=== PATIENT | female | born 2000 | race Caucasian/White ===

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

== ENCOUNTER 2019-02-10 17:35 | Emergency (ER) | payer OTHER ==
[2019-02-10 17:59] VITALS: BP 118/68
--- NOTE | 2019-02-10 18:36 | UC ---
Skin Complaint HPI - HPI Summary HPI Summary: Per product developer: "Last night face started itchy. This morning face is still itchy and red. Pt did use a new cleanser yesterday morning and Friday ana. " -denies swelling in lips, tongue, throat SOB or wheezing. -swelling and itching is only in areas that she applied cleanser -she took benadryl at ~ 3 PM last with relief. -denies any other allergies or ever need to have use of epi pen -denies palpiattions/heart racing. not lightheaded or dizzy. no n/v/abd pain - History of Current Complaint Chief Complaint: UCSkin Time Seen by Provider: 02/10/19 18:14 Stated Complaint: SKIN COMPLAINT Hx Last Menstrual Period: 06/25/18 Pain Intensity: 0 - Allergy/Home Medications Allergies/Adverse Reactions: Allergies Allergy/AdvReac Type Severity Reaction Status Date / Time sulfamethoxazole Allergy Rash Verified 02/10/19 17:59 [From Bactrim] trimethoprim [From Bactrim] Allergy Rash Verified 02/10/19 17:59 walnuts Allergy See Comment Uncoded 02/10/19 17:59 PMH/Surg Hx/FS Hx/Imm Hx Previously Healthy: Yes Other History Of: Negative For: HIV, Hepatitis B, Hepatitis C - Surgical History Surgical History: None - Family History Known Family History: Positive: None - No asthma., Hypertension, Diabetes, Other - Patient denies relevant FHx Family History: Noncontributory - Social History Alcohol Use: Daily Substance Use Type: Marijuana Substance Use Comment - Amount & Last Used: daily use Smoking Status (MU): Current Some Day Smoker Type: Cigarettes - Immunization History Vaccination Up to Date: Yes Review of Systems All Other Systems Reviewed And Are Negative: Yes Constitutional: Positive: Negative. Negative: Fever, Chills Skin: Positive: Other - see above Eyes: Positive: Negative ENT: Positive: Negative. Negative: Dental Pain, Sore Throat, Ear Ache, Sinus Congestion Respiratory: Positive: Negative. Negative: Shortness Of Breath, Cough Cardiovascular: Positive: Negative Gastrointestinal: Positive: Negative Motor: Positive: Negative Neurovascular: Positive: Negative Musculoskeletal: Positive: Negative Neurological: Positive: Negative Psychological: Positive: Negative Is Patient Immunocompromised?: No Physical Exam Triage Information Reviewed: Yes Appearance: Well-Appearing, No Pain Distress, Well-Nourished Vital Signs: Initial Vital Signs Temp 98.2 F 02/10/19 17:54 Pulse 77 02/10/19 17:54 Resp 18 02/10/19 17:54 BP 118/68 02/10/19 17:54 Pulse Ox 100 02/10/19 17:54 Vital Signs Reviewed: Yes Eye Exam: Normal Eyes: Positive: Conjunctiva Clear ENT: Positive: Pharynx normal, TMs normal, Uvula midline, Other - no swelling of lips, tongue, uvula or throat. skin generalized slight areas or uritcaria w/ mild erythema. no disruption to skin. cool to touch. + itching. sharp demarkation at jaw/face line where she used the cleanser. Negative: Pharyngeal erythema Dental Exam: Normal Neck exam: Normal Neck: Positive: Supple, Nontender, No Lymphadenopathy Respiratory Exam: Normal Respiratory: Positive: Lungs clear, Normal breath sounds, No respiratory distress, No accessory muscle use. Negative: Crackles, Rhonchi, Stridor, Wheezing Cardiovascular Exam: Normal Cardiovascular: Positive: RRR, No Murmur Abdominal Exam: Normal Abdomen Description: Positive: Nontender, Soft Musculoskeletal Exam: Normal Neurological Exam: Normal Psychological Exam: Normal Skin Exam: Normal Course/Dx - Course Course Of Treatment: -akkergic reaction to new facial cleanser. stop it and take picture of ingredients in case she needs to know for avoidance of certyain ingrediaents. -no systemic symptoms. no tongue, throat or lip swelling or SOB -prednisoen 40mgs x 1 here -medrol dose pack - start in AM -zyrtec 10mgs daily x 14 d -zantac 150msg BID x 14 d - Differential Diagnoses - Skin Complaint Differential Diagnoses: Angioedema, Cellulitis, Contact Dermatitis, Urticaria - Diagnoses Provider Diagnosis: Urticaria Discharge ED - Sign-Out/Discharge Documenting (check all that apply): Patient Departure All imaging exams completed and their final reports reviewed: No Studies - Discharge Plan Condition: Stable Disposition: HOME Prescriptions: methylPREDNISolone [Medrol Dosepak 4 MG*] 4 mg PO .SEE LUCIA INSTRUCTION #1 tab Patient Education Materials: Urticaria (ED) Referrals: Sis Huerta MD [Primary Care Provider] - 5 Days Additional Instructions: -We talked about the potential side effects of prednisone including but not limited too increased energy/decreased sleep, stomach upset, irritability, hunger, elevated blood sugars and blood pressures, problems with your adrenal glands and cut off of the blood supply going to your hip. The latter symptoms are more typical of joint terminal attack controller or frequent use of steroids. -We have given you 40mgs prednisone today and a lower dose to start tomorrow has been sent to the pharmacy. You shoudl also take zrytec (or generic cetirizine) 10mgs daily adn zantac ( ranitidine 150mgs 2x/day) x 14 days each. -You should follow up sooner if symptoms not resolved -You should go to the ER via 911 with any swelling in your tongue, lips, throat or shortness of breath or wheezing. - Billing Disposition and Condition Condition: STABLE Disposition: Home
[2019-02-10] MEDS ORDERED: predniSONE TAB* 20 MG PO ONE (18:43)
== END 2019-02-10 19:09 | disposition home or self-care (01) ==
LOC: UCCORT 17:35
DX: L50.9 Urticaria, unspecified (principal); Z88.2 Allergy status to sulfonamides; Z91.018 Allergy to other foods; Z72.0 Tobacco use
CPT/HCPCS: 99212; G0463; J7512

== ENCOUNTER 2019-05-28 15:59 | Emergency (ER) | payer OTHER ==
[2019-05-28 16:46] VITALS: BP 127/71
--- NOTE | 2019-05-28 17:40 | UC ---
Throat Pain/Nasal Manohar HPI - History of Current Complaint Chief Complaint: UCGeneralIllness Stated Complaint: ST Time Seen by Provider: 05/28/19 17:00 Hx Obtained From: Patient Hx Last Menstrual Period: 04/19/19 Pain Intensity: 4 - Allergies/Home Medications Allergies/Adverse Reactions: Allergies Allergy/AdvReac Type Severity Reaction Status Date / Time sulfamethoxazole Allergy Rash Verified 05/28/19 16:39 [From Bactrim] trimethoprim [From Bactrim] Allergy Rash Verified 05/28/19 16:39 walnuts Allergy See Comment Uncoded 05/28/19 16:39 Home Medications: Home Medications GuaiFENesin DM 100 mg/10 mg [Robitussin DM 100 mg/10 mg in 5 ml] 10 ml PO Q6H PRN 05/28/19 [History Confirmed 05/28/19] PMH/Surg Hx/FS Hx/Imm Hx Other History Of: Negative For: HIV, Hepatitis B, Hepatitis C - Surgical History Surgical History: None - Family History Known Family History: Positive: None - No asthma., Hypertension, Diabetes, Other - Patient denies relevant FHx Family History: Noncontributory - Social History Alcohol Use: Daily Substance Use Type: Marijuana Substance Use Comment - Amount & Last Used: daily use Smoking Status (MU): Current Some Day Smoker Type: Cigarettes - Immunization History Vaccination Up to Date: Yes Physical Exam Vital Signs: Initial Vital Signs Temp 98.4 F 05/28/19 16:41 Pulse 89 05/28/19 16:41 Resp 19 05/28/19 16:41 BP 127/71 05/28/19 16:41 Pulse Ox 100 05/28/19 16:41 Throat Pain/Nasal Course/Dx - Differential Dx/Diagnosis Differential Diagnosis/HQI/PQRI: Mononucleosis, Peritonsillar Abscess, Pharyngitis, Tonsillitis, URI Provider Diagnosis: URI (upper respiratory infection) Discharge ED - Sign-Out/Discharge Documenting (check all that apply): Patient Departure All imaging exams completed and their final reports reviewed: No Studies - Discharge Plan Condition: Stable Disposition: HOME Patient Education Materials: Upper Respiratory Infection (ED) Forms: *Work Release Referrals: Sis Huerta MD [Primary Care Provider] - 3 Days Additional Instructions: Your history and exam are consistent with a viral upper respiratory infection. Viral infections do not respond to antibiotics and are limited to the treatment of symptoms. Get plenty of rest. Drink plenty of fluids to avoid dehydration especially if you are running any fever. Use an over the counter decongestant such as Sudafed for the congestion. Take over the counter acetaminophen (Tylenol) or ibuprofen (Advil, Motrin) according to directions as needed for pain or fever. Use salt water gargles several times a day if you have a sore throat. You may also use Chloraseptic spray or Cepacol lonzenges according to directions which contain a numbing medication and can provide some temporary relief from your sore throat. Follow up with your primary care provider in 3-5 days if symptoms persist. Seek immediate medical attention in the emergency room if you have fever greater than 100.5 F despite taking acetaminophen or ibuprofen, have chest pain , difficulty breathing, are unable to swallow, or have any worsening of symptoms. - Billing Disposition and Condition Condition: STABLE Disposition: Home
== END 2019-05-28 17:57 | disposition home or self-care (01) ==
LOC: UCCORT 15:59
DX: J06.9 Acute upper respiratory infection, unspecified (principal); F17.210 Nicotine dependence, cigarettes, uncomplicated; Z88.2 Allergy status to sulfonamides; Z88.1 Allergy status to other antibiotic agents; Z91.018 Allergy to other foods
CPT/HCPCS: 87651; 99211; G0463

== ENCOUNTER 2021-07-04 11:52 | Inpatient (IN) ==
[2021-07-04] MEDS ORDERED: Penicillin G Potassium IV 5,000,000 UNITS in NS 0.9% 100 ml BAG 100 ML IVPB ONE (12:02)
[2021-07-04 14:45] LABS: Urine Benzodiazepine Screen None Detected (None Detect); Urine Cannabinoids Screen None Detected (None Detect); Urine Opiates Screen None Detected (None Detect)
[2021-07-04 21:07] LABS: ABS Eosinophils 0.1 10^3/ul (0-0.6); ABS Lymphocytes 2.6 10^3/ul (1.0-4.8); ABS Monocytes 0.9 10^3/ul (0-0.8); ABS Neutrophils 7.9 10^3/ul (1.5-7.7); Eosinophil % 0.8 %; Hematocrit 35 % (35-47); Hemoglobin 11.8 g/dL (12.0-16.0); Lymphocyte % 22.4 %; Mean Corpuscular HGB Conc 34 g/dL (31-36); Mean Corpuscular Hemoglobin 27 pg (27-31); Mean Corpuscular Volume 81 fL (80-97); Mean Platelet Volume 8.9 fL (7.4-10.4); Nucleated Red Blood Cells % 0.1; Platelet Count 291 10^3/uL (150-450); Red Blood Count 4.35 10^6 /uL (3.70-4.87); Red Cell Distribution Width 14 % (10-15); White Blood Count 11.5 10^3/uL (3.5-10.8)
[2021-07-04] MEDS ORDERED: Nalbuphine 10 MG/ML 1 ML VIAL IV ONE (23:29)
[2021-07-04] MEDS ORDERED: Promethazine INJ(RESTRICTED) 25 MG/ML 1 ml VIAL IV ONE (23:30)
[2021-07-05] MEDS: Penicillin G Potassium IV 3,000,000 UNITS in NS 0.9% 100 ml BAG 100 ML IVPB SCH ×5 (00:45→17:03)
[2021-07-05] MEDS ORDERED: Oxytocin in LR 20 UNITS/1,000 ML BAG IVPB SCH ×2 (10:00→23:45)
[2021-07-05] MEDS ORDERED: OBEPIDURAL 0 ML EPIDURAL ONE (15:48)
[2021-07-05] MEDS ORDERED: Nalbuphine 10 MG/ML 1 ML VIAL IV ONE (16:30)
[2021-07-05] MEDS ORDERED: Promethazine INJ(RESTRICTED) 25 MG/ML 1 ml VIAL IV ONE (16:30)
[2021-07-05] MEDS ORDERED: OBEPIDURAL 250 ML EPIDURAL ONE (18:50)
[2021-07-05] MEDS ORDERED: Penicillin G Potassium IV 3,000,000 UNITS in NS 0.9% 100 ml BAG 100 ML IVPB SCH (19:30)
[2021-07-05] MEDS ORDERED: Phenylephrine 40 mcg/mL 10mL (400mcg) SYRINGE IV PUSH PRN ×2 (19:49)
[2021-07-05] MEDS ORDERED: EPHEDrine (Pressors) 50 MG/ML VIAL IV PUSH PRN ×2 (19:49)
[2021-07-05] MEDS ORDERED: Sodium Citrate/Citric Acid LIQ 15 ML UDC PO PRN (19:49)
[2021-07-05] MEDS ORDERED: Lactated Ringers 1000 ml BAG 1,000 ML IV ONE (19:49)
[2021-07-05] MEDS ORDERED: Lactated Ringers 1000 ml BAG 1,000 ML IV SCH ×2 (20:00→23:45)
[2021-07-05] MEDS ORDERED: OBEPIDURAL 250 ML EPIDURAL SCH (20:00)
[2021-07-05] MEDS ORDERED: Lidocaine 1% VIAL 10 MG/ML VIAL ONE (22:51)
[2021-07-05] MEDS ORDERED: Dibucaine 1% OINT 28.35 GM TUBE PR PRN (23:10)
[2021-07-05] MEDS ORDERED: Glycerin ADULT 2.4 gm SUPP PR PRN (23:10)
[2021-07-05] MEDS ORDERED: Witch Hazel PAD JAR TOPICAL PRN (23:10)
[2021-07-05] MEDS ORDERED: RHO D Immune Globulin (HUMAN) 300 MCG = 1,500 I.U. INJ IM PRN (23:10)
[2021-07-06 06:47] LABS: ABS Eosinophils 0.1 10^3/ul (0-0.6); ABS Lymphocytes 2.7 10^3/ul (1.0-4.8); ABS Monocytes 1.4 10^3/ul (0-0.8); ABS Neutrophils 11.3 10^3/ul (1.5-7.7); Eosinophil % 0.3 %; Hematocrit 31 % (35-47); Hemoglobin 10.2 g/dL (12.0-16.0); Lymphocyte % 17.1 %; Mean Corpuscular HGB Conc 33 g/dL (31-36); Mean Corpuscular Hemoglobin 27 pg (27-31); Mean Corpuscular Volume 82 fL (80-97); Mean Platelet Volume 8.8 fL (7.4-10.4); Platelet Count 243 10^3/uL (150-450); Red Blood Count 3.75 10^6 /uL (3.70-4.87); Red Cell Distribution Width 14 % (10-15); White Blood Count 15.5 10^3/uL (3.5-10.8)
[2021-07-07 08:26] VITALS: BP 122/79
== END 2021-07-07 16:00 | disposition home or self-care (01) | DRG 560 ==
LOC: MCHOBOUT 11:52 → MCHOB 12:06
PROVIDERS: ADMIT Midwife; ATTEND Midwife

== ENCOUNTER 2023-09-17 10:11 | Inpatient (IN) ==
[2023-09-17] MEDS ORDERED: Lidocaine 1% VIAL 10 MG/ML 30 ML VIAL INJ PRN ×2 (12:25→13:09)
[2023-09-17 12:42] LABS: ABS Basophils 0.1 10^3/uL (0.0-0.1); ABS Eosinophils 0.1 10^3/uL (0.0-0.5); ABS Lymphocytes 2.4 10^3/uL (1.0-4.8); ABS Monocytes 0.7 10^3/uL (0.0-0.9); ABS Neutrophils 7.2 10^3/uL (1.5-7.6); ABS Nucleated RBC 0.01 10^3/ul; Eosinophil % 0.6 %; Lymphocyte % 22.7 %; Mean Corpuscular Hemoglobin 26.4 pg (27-33); Mean Corpuscular Hgb Conc 33.3 g/dL (31-36); Mean Corpuscular Volume 79.2 fL (80-97); Mean Platelet Volume 8.9 fL (7.5-11.2); Nucleated Red Blood Cells % 0.1 %/100WBC (0.0-0.8); Platelet Count 297 10^3/uL (150-450); Red Blood Count 4.55 10^6/uL (3.63-4.92); Red Cell Distribution Width 15.1 % (12-17); White Blood Count 10.4 10^3/uL (3.8-11.8)
[2023-09-17] MEDS: Terbutaline INJ 1 MG/ML 1 ml VIAL SUBCUT ONE (12:58)
[2023-09-17] MEDS: Mineral Oil Sterile, TOPICAL 25 ML BTL TOPICAL ONE (13:00)
[2023-09-17 13:05] LABS: Urine Benzodiazepine Screen None Detected (None Detect); Urine Cannabinoids Screen None Detected (None Detect); Urine Opiates Screen None Detected (None Detect)
[2023-09-17 13:09] LABS: Albumin 4.1 g/dL (3.2-5.2); Albumin/Globulin Ratio 1.1 (1-3); Calcium 9.4 mg/dL (8.6-10.3); Creatinine, Serum 0.47 mg/dL (0.51-0.95); Globulin 3.7 g/dL (2-4); Potassium 3.8 mmol/L (3.5-5.0); Total Bilirubin 0.5 mg/dL (0.2-1.0); Total Protein 7.8 g/dL (6.4-8.9); eGFR CKD-EPI 136.2 (>60)
[2023-09-17] MEDS ORDERED: Prochlorperazine 5 mg/ml 2 ml VIAL (10 mg) IV PRN (13:09)
[2023-09-17] MEDS ORDERED: Lactated Ringers 1000 ml BAG 1,000 ML IV ONE (13:09)
[2023-09-17] MEDS: Oxytocin in LR 20,000 MILLI.UNIT/1,000 ML BAG IV SCH (15:30)
[2023-09-17] MEDS: Lactated Ringers 1000 ml BAG 1,000 ML IV SCH ×2 (15:30→19:28)
[2023-09-17] MEDS: Buffered Lidocaine 1% SYRIN 1 ml INTRADERM ONE (19:25)
[2023-09-17] MEDS: Mineral Oil Sterile, TOPICAL 25 ML BTL ONE (19:27)
[2023-09-17] MEDS: Lactated Ringers 1000 ml BAG 1,000 ML IV ONE (19:29)
[2023-09-18] MEDS: Calcium Carb (TUMS) 500 mg CHEW TAB PO ONE (00:59)
[2023-09-18] MEDS: Penicillin G Potassium IV 5,000,000 UNITS in NS 0.9% 100 ml BAG 100 ML IVPB ONE (08:47)
[2023-09-18] MEDS: Penicillin G Potassium IV 3,000,000 UNITS in NS 0.9% 100 ml BAG 100 ML IVPB SCH (13:12)
[2023-09-18] MEDS: OBEPIDURAL (200 ML) 200 ML EPIDURAL ONE (18:51)
[2023-09-18 20:16] LABS: Urine Appearance Clear; Urine Bilirubin Negative (Negative); Urine Blood Negative (Negative); Urine Color Colorless; Urine Glucose Negative (Negative); Urine Ketones Negative (Negative); Urine Nitrite Negative (Negative); Urine Protein Negative (Negative); Urine Specific Gravity 1.011 (1.002-1.030); Urine Urobilinogen Negative (Negative); Urine pH 6.5 (5.0-8.0)
[2023-09-19] MEDS ORDERED: Glycerin ADULT 2.4 gm SUPP PR PRN (01:06)
[2023-09-19] MEDS: Witch Hazel PAD JAR TOPICAL PRN (01:32)
[2023-09-19] MEDS: Dibucaine 1% OINT 28.35 GM TUBE PR PRN (01:32)
[2023-09-19] MEDS ORDERED: Sodium Citrate/Citric Acid LIQ 15 ML UDC PO PRN (01:52)
[2023-09-19] MEDS ORDERED: Phenylephrine 40 mcg/mL 10mL (400mcg) SYRINGE IV PUSH PRN ×2 (01:52)
[2023-09-19] MEDS ORDERED: Lactated Ringers 1000 ml BAG 1,000 ML IV SCH (02:00)
[2023-09-19] MEDS: OBEPIDURAL (200 ML) 200 ML EPIDURAL SCH (03:43)
[2023-09-19] MEDS: Lidocaine 1.5% EPI 1:200,000 30 ML SDV ONE (03:43)
[2023-09-19] MEDS: Oxytocin in LR 20,000 MILLI.UNIT/1,000 ML BAG IV SCH ×3 (06:00→15:25)
[2023-09-19] MEDS: Methylergonovine 0.2 mg AMPULE 1 ml AMP ONE (06:02)
[2023-09-19] MEDS: ceFAZolin 2 GM/50 ML BAG IV ONE (06:30)
[2023-09-19 07:32] LABS: ABS Basophils 0.1 10^3/uL (0.0-0.1); ABS Lymphocytes 1.9 10^3/uL (1.0-4.8); ABS Monocytes 1.4 10^3/uL (0.0-0.9); ABS Neutrophils 17.1 10^3/uL (1.5-7.6); Eosinophil % 0.1 %; Hemoglobin 7.8 g/dL (11.5-14.3); Lymphocyte % 9.4 %; Mean Corpuscular Hemoglobin 25.7 pg (27-33); Mean Corpuscular Hgb Conc 32.5 g/dL (31-36); Mean Corpuscular Volume 79.2 fL (80-97); Mean Platelet Volume 8.3 fL (7.5-11.2); Platelet Count 214 10^3/uL (150-450); Red Blood Count 3.04 10^6/uL (3.63-4.92); White Blood Count 20.5 10^3/uL (3.8-11.8)
[2023-09-19 07:34] LABS: Platelet Count 208 10^3/ul (150-450)
[2023-09-19] MEDS: Morphine 2 MG/ML SYRINGE ONE (07:55)
[2023-09-19 08:26] LABS: Activated Partial Thrombo Time 31.4 seconds (26.0-38.0)
[2023-09-19 08:54] LABS: Schistocytes ABSENT
[2023-09-19] MEDS: ceFAZolin 2 GM PREMIX 2 GM/50 ML BAG ONE (12:58)
[2023-09-19] MEDS: Lactated Ringers 1000 ml BAG 1,000 ML IV SCH (15:26)
[2023-09-19] MEDS: Lactated Ringers 1000 ml BAG 1,000 ML IV ONE (15:26)
[2023-09-19] MEDS: Iron Sucrose 200 MG in NS 0.9% 100 ml BAG 100 ML IVPB ONE (16:00)
[2023-09-19] MEDS: ceFAZolin 2 GM in NS PREMIX 2 GM/100 ML BAG IVPB ONE (17:38)
[2023-09-19 19:03] LABS: Hemoglobin 6.6 g/dL (11.5-14.3)
[2023-09-20 07:47] LABS: ABS Eosinophils 0.1 10^3/uL (0.0-0.5); ABS Lymphocytes 2.7 10^3/uL (1.0-4.8); ABS Monocytes 0.7 10^3/uL (0.0-0.9); ABS Neutrophils 8.8 10^3/uL (1.5-7.6); Hematocrit 20.4 % (35-45); Hemoglobin 6.8 g/dL (11.5-14.3); Mean Corpuscular Hemoglobin 26.6 pg (27-33); Mean Corpuscular Hgb Conc 33.4 g/dL (31-36); Mean Corpuscular Volume 79.7 fL (80-97); Mean Platelet Volume 8.4 fL (7.5-11.2); Platelet Count 185 10^3/uL (150-450); Red Blood Count 2.56 10^6/uL (3.63-4.92); Red Cell Distribution Width 15.3 % (12-17); White Blood Count 12.4 10^3/uL (3.8-11.8)
[2023-09-20] MEDS: RHO D Immune Globulin (HUMAN) 300 MCG = 1,500 I.U. INJ IM ONE (12:30)
[2023-09-20 12:46] VITALS: BP 127/81
== END 2023-09-20 12:50 | disposition home or self-care (01) | DRG 560 ==
LOC: MCHOBOUT 10:11 → MCHOB 11:16
PROVIDERS: ADMIT Registered Nurse; ATTEND Advanced Practice Midwife